=== PATIENT | male | born 1995 | race Caucasian/White ===

== ENCOUNTER 2022-01-30 11:27 | Emergency (ER) | payer OTHER ==
[~2022-01-30] VITALS: Ht 193 cm; Wt 100.0 kg
[~2022-01-30 11:27] MED LIST: LEVO137T2 PO; TERB250T90 PO
[2022-01-30 11:56] VITALS: BP 140/74
== END 2022-01-30 12:57 | disposition home or self-care (01) ==
LOC: EDUNIT# 11:27 → EMS 11:35
DX: T78.49XA Other allergy, initial encounter (principal); E03.9 Hypothyroidism, unspecified; Y92.89 Other specified places as the place of occurrence of the external cause
CPT/HCPCS: 99281; Z7502